=== PATIENT | male | born 1975 | race Caucasian/White ===

== ENCOUNTER 2017-02-22 09:26 | Emergency (ER) | payer BC ==
[~2017-02-22] VITALS: Ht 172.7 cm; Wt 90.7 kg
[2017-02-22 09:46] VITALS: BP 126/79; PULSE 57; RESP 16; TEMP 98; O2SAT 100
--- NOTE | 2017-02-22 09:55 | NUR ---
AMBULATED TO BED 6
--- NOTE | 2017-02-22 09:59 | NUR ---
ER at bedside examining patient.
[2017-02-22] MEDS ORDERED: MORPHINE 4 MG/ML INJ. SYRINGE IVP ONE (10:00)
[2017-02-22] MEDS ORDERED: ONDANSETRON HCL 4 MG/2 ML VIAL IVP ONE (10:00)
[2017-02-22] MEDS ORDERED: DEXAMETHASONE SOD PHOSPHATE 10 MG/ML VIAL IVP ONE (10:00)
[2017-02-22] MEDS ORDERED: KETOROLAC TROMETHAMINE 30 MG VIAL IVP ONE (10:00)
--- NOTE | 2017-02-22 10:24 | NUR ---
c/o back pain since this morning.
--- NOTE | 2017-02-22 10:24 | NUR ---
# 20 gauge angiocath placed to RAC . Use of asceptic technique. Opsite placed over site. Blood return noted. Blood for lab drawn from site. Flushed with 10 cc of normal saline. No evidence of infiltration noted. Patient tolerated well.
--- NOTE | 2017-02-22 10:39 | NUR ---
medicated per MD's order.
--- NOTE | 2017-02-22 12:10 | NUR ---
Pt on stable condition, denies pain or discomfort at this time.
[2017-02-22 12:18] VITALS: BP 126/79; PULSE 57; RESP 16; TEMP 98; O2SAT 100
--- NOTE | 2017-02-22 12:19 | NUR ---
Patient given written and verbal discharge instructions and verbalizes understanding. ER MD discussed with patient the results and treatment provided. Patient in stable condition. ID arm band removed. IV catheter removed intact and dressing applied, no active bleeding. . Patient educated on pain management and to follow up with PMD. Pain Scale 0/10. Opportunity for questions provided and answered.
== END 2017-02-22 12:18 | disposition home or self-care (01) ==
LOC: SED 09:26
DX: S29.012A Strain of muscle and tendon of back wall of thorax, initial encounter (principal); X50.0XXA Overexertion from strenuous movement or load, initial encounter; Y93.89 Activity, other specified; Y99.8 Other external cause status; Y92.009 Unspecified place in unspecified non-institutional (private) residence as the place of occurrence of the external cause
CPT/HCPCS: 96374; 96375; 99284; J1100; J1885; J2270; J2405